=== PATIENT | female | born 1995 | race Hispanic/Latino ===

== ENCOUNTER 2022-07-16 09:01 | Emergency (ER) | payer SELFPAY ==
[2022-07-16 09:10] VITALS: O2SAT 99
[2022-07-16] MEDS ORDERED: DIFLUCAN150 MG PO (09:52)
[2022-07-16] MEDS ORDERED: CEFUROXIME500 MG PO (09:54)
== END 2022-07-16 10:05 | disposition home or self-care (01) ==
LOC: FSED 09:19
DX: B37.31 Acute candidiasis of vulva and vagina (principal); N39.0 Urinary tract infection, site not specified
CPT/HCPCS: 36415; 81003; 81025; 82948; 99282